=== PATIENT | male | born 1995 | race Caucasian/White ===

== ENCOUNTER 2020-11-18 15:23 | Inpatient (IN) | payer MEDICARE, OTHER ==
[~2020-11-18] VITALS: Ht 170.2 cm; Wt 108.3 kg
[~2020-11-18 15:23] MED LIST: "DEPAKOTE \\\"ER\\\"500 MG" PO; BENZACLIN GEL 335 GM TOP; COGENTIN 2MG TAB2 MG PO; DESITIN TOP; IMODIUM CAP 2 MG2 MG PO; LEVAQUIN750 MG PO; LIORESAL TAB 1010 MG PO; REMERON15 MG PO; SEROQUEL200 MG PO; TAMIFLU75 MG PO; TYLENOL325 M1 PO; ZOFRAN4 MG PO; ZOLOFT100 MG PO; ZYRTEC10 MG PO
[2020-11-18 16:49] LABS: RED BLOOD COUNT 4.35 M/UL (4.20-5.50); WHITE BLOOD COUNT 7.6 K/UL (4.5-11.0)
[2020-11-18 17:19] LABS: BUN/CREATININE RATIO 17 (0-10)
[2020-11-18] MEDS ORDERED: ATIVAN0.5 MG PO ×2 (19:36)
[2020-11-18] MEDS ORDERED: BACTRIM DS TAB1 EACH PO (19:38)
[2020-11-18] MEDS ORDERED: CALCIUM 500 +1 EAC1 PO (19:40)
[2020-11-18] MEDS ORDERED: FOLIC ACID0.4 MG PO (19:44)
[2020-11-18] MEDS ORDERED: ALTACE CAP 5MG5 MG PO (19:45)
[2020-11-18] MEDS ORDERED: MEDICATI TP (20:02)
[2020-11-18] MEDS ORDERED: BACTROBAN OINT22 GM EXT (20:03)
[2020-11-18] MEDS ORDERED: HIBICLENS 4% TOP (20:08)
[2020-11-18] MEDS ORDERED: IBUPROFEN600 MG PO (20:10)
[2020-11-18] MEDS ORDERED: FLONASE 0.05% N16 GM (20:10)
[2020-11-18] MEDS ORDERED: [UNRECOGNIZED DRUG - OTHER] TP (20:12)
--- NOTE | 2020-11-19 07:35 | NUR ---
pt arrived to the floor with a sitter order. sitter is giving report and will be her shortly. pt is constantly needing redirection, pulling at his wrapped IV. This is his 5th IV. pt refuses to have vital signs taken.
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
--- NOTE | 2020-11-19 07:52 | NUR ---
The pt is non-verbal, but he was sitting in the floor and then would try to lay in the floor. I began to wonder if he sleeps on a mattress on the floor at the home. Since even after the ativan and geodon we were still unable to get him into the bed, I pulled the mattress into the floor and the pt went straight to the mattress and laid down. He has a sitter at the bedside and we will keep him as calm and comfortable as possible. I notified house of the above situation.
[2020-11-19] MEDS ORDERED: KEFLEX CAP 250250 MG PO (12:20)
[2020-11-19] MEDS ORDERED: MAGNESIUM200 MG PO (19:43)
== END 2020-11-19 15:26 | disposition home or self-care (01) | DRG 603 ==
LOC: ER1 15:23 → CDU 18:33 → M/S 22:50
PROVIDERS: Preventive Medicine Occupational Medicine; ADMIT Internal Medicine
DX: L03.314 Cellulitis of groin (principal); F84.0 Autistic disorder; I10 Essential (primary) hypertension; Z20.822 Contact with and (suspected) exposure to COVID-19
CPT/HCPCS: 72193; 80053; 83605; 85025; 85652; 86140; 90471; 96365; 96366; 96368; 96372; 99284; J1650; J2060; J2543; J3370; J3486; J7070; Q9967; U0002

== ENCOUNTER 2020-11-23 13:23 | Emergency (ER) | payer MEDICARE, OTHER ==
[~2020-11-23 13:23] MED LIST changes: +ALTACE CAP 5MG5 MG PO; +ATIVAN0.5 MG PO; +BACTRIM DS TAB1 EACH PO; +BACTROBAN OINT22 GM EXT; +CALCIUM 500 +1 EAC1 PO; +FLONASE 0.05% N16 GM; +FOLIC ACID0.4 MG PO; +HIBICLENS 4% TOP; +IBUPROFEN600 MG PO; +KEFLEX CAP 250250 MG PO; +MAGNESIUM200 MG PO; +MEDICATI TP; +[UNRECOGNIZED DRUG - OTHER] TP
[2020-11-23 16:27] LABS: HEMOGLOBIN 14.9 gm/dl (14.0-17.5); RED BLOOD COUNT 5.03 M/UL (4.20-5.50); WHITE BLOOD COUNT 8.6 K/UL (4.5-11.0)
[2020-11-23 16:44] LABS: BUN/CREATININE RATIO 11 (0-10)
== END 2020-11-23 19:06 | disposition home or self-care (01) ==
LOC: ER1 13:23
PROVIDERS: Family Medicine
DX: R21 Rash and other nonspecific skin eruption (principal); F84.0 Autistic disorder; Z88.8 Allergy status to other drugs, medicaments and biological substances
CPT/HCPCS: 80053; 85025; 99283

== ENCOUNTER 2021-04-15 20:00 | Emergency (ER) | payer MEDICARE, OTHER ==
[2021-04-15 20:59] LABS: HEMOGLOBIN 13.5 gm/dl (14.0-17.5); RED BLOOD COUNT 4.68 M/UL (4.20-5.50); WHITE BLOOD COUNT 2.7 K/UL (4.5-11.0)
[2021-04-15 21:07] LABS: BUN/CREATININE RATIO 15 (0-10)
[2021-04-15] MEDS ORDERED: ASPIRIN CHEWABL81 MG PO (23:47)
[2021-04-15] MEDS ORDERED: DECADRON6 MG PO (23:47)
[2021-04-16] MEDS ORDERED: ZITHROMAX250 MG PO (00:05)
== END 2021-04-16 01:08 | disposition home or self-care (01) ==
LOC: ER1 20:00
PROVIDERS: Family Medicine
DX: Z23 Encounter for immunization (principal); U07.1 COVID-19; J12.82 Pneumonia due to coronavirus disease 2019
CPT/HCPCS: 71045; 80053; 83615; 85025; 85652; 86140; 93005; 99285; M0243

== ENCOUNTER → 2021-05-19 | Outpatient (CLI) | payer MEDICARE, OTHER ==
[~2021-05-19] MED LIST changes: +ASPIRIN CHEWABL81 MG PO; +DECADRON6 MG PO; +ZITHROMAX250 MG PO
== END ==
LOC: KOH-I 11:06
DX: U07.1 COVID-19 (principal); J98.4 Other disorders of lung
CPT/HCPCS: 71046

== ENCOUNTER 2021-12-05 18:14 | Emergency (ER) | payer MEDICARE, OTHER | END 2021-12-05 22:53 | disposition home or self-care (01) | LOC: ER1 18:14 | DX: T17.928A Food in respiratory tract, part unspecified causing other injury, initial encounter (principal); R11.10 Vomiting, unspecified; E78.5 Hyperlipidemia, unspecified; I10 Essential (primary) hypertension; X58.XXXA Exposure to other specified factors, initial encounter | CPT/HCPCS: 71045; 99283 ==